=== PATIENT | female | born 1950 | race Caucasian/White ===

== ENCOUNTER → 2017-04-06 | Outpatient (CLI) | payer MEDICARE, OTHER ==
[~2017-04-06] MED LIST: /AMLO25TA PO; /FAMO2TA PO; /HCTZ25TA PO; /WARF25TA PO; CALC600T7 PO; FLEETS ENEMA PR; LEVO75TA PO; LIPI10TA PO; PERCOCET PO; TYLE325T5 PO; VITA400C2 PO; VITA500C24 PO
--- NOTE | 2017-04-06 12:38 | REP ---
REASON: Followup hepatic lesions. COMPARISON: 01/25/2015. Multiple sonographic images of the gallbladder show no abnormalities. Multiple sonographic images of the liver again show numerable complex hepatic lesions, three in the left lobe, two in the right, all unchanged from the prior exam. The common bile duct is upper limits of normal for the patient's age group measuring just under 7 mm. Multiple sonographic images of the pancreas show no abnormalities. The spleen has a maximal dimension of 8.1 cm and a volume metric index calculation which is within normal limits of 225. The kidneys are unchanged, the right kidney measures 9.9 x 4.7 x 4.1 cm and left 12.2 x 4.7 x 4.9 cm. There are bilateral renal cysts status quo. No free fluid is seen in the abdomen. IMPRESSION: No significant change from the prior exam with findings as described above. Signed by Denver Howell DO 04/06/2017 02:46 P
== END ==
LOC: M RAD 09:27
PROVIDERS: ATTEND Family Medicine
DX: D18.03 Hemangioma of intra-abdominal structures (principal); K76.89 Other specified diseases of liver; N28.1 Cyst of kidney, acquired

== ENCOUNTER → 2017-04-09 | Outpatient (CLI) | payer MEDICARE, OTHER ==
[2017-04-09 11:24] LABS: ALBUMIN 3.7 GM/DL (3.2-5.2); ALKALINE PHOSPHATASE 108 U/L (45-117); ALT/SGPT 19 U/L (12-78); ANION GAP 7 MEQ/L (8-16); AST/SGOT 18 U/L (15-37); BILIRUBIN,TOTAL 0.7 MG/DL (0.2-1.0); BLOOD UREA NITROGEN 17 MG/DL (7-18); CALCIUM LEVEL 9.9 MG/DL (8.8-10.2); CARBON DIOXIDE LEVEL 33 MEQ/L (21-32); CHLORIDE LEVEL 105 MEQ/L (98-107); CHOLESTEROL LEVEL 166 MG/DL (<200); CREATININE FOR GFR 0.75 MG/DL (0.55-1.02); FREE T4 1.53 NG/DL (0.76-1.46); GLOMERULAR FILTRATION RATE > 60.0 (>45); GLUCOSE, FASTING 85 MG/DL (80-110); POTASSIUM SERUM 3.8 MEQ/L (3.5-5.1); SODIUM LEVEL 145 MEQ/L (136-145); TOTAL PROTEIN 7.8 GM/DL (6.4-8.2); TRIGLYCERIDES LEVEL 121 MG/DL (<150)
== END ==
LOC: M LAB 10:18
PROVIDERS: ATTEND Family Medicine
DX: E03.9 Hypothyroidism, unspecified (principal); I10 Essential (primary) hypertension

== ENCOUNTER → 2017-04-13 | Outpatient (CLI) | payer MEDICARE, OTHER ==
--- NOTE | 2017-04-13 12:09 | REP ---
Clinical: Lung screening. Smoking history. Comparison: None Technique: Axial low-dose noncontrast images from the thoracic inlet to the upper abdomen using lung screening technique. Findings: The lung huffman are well-aerated. Mild scattered age-related chronic changes are appreciated including mild bronchiectasis and very subtle emphysematous changes. Ill-defined 3 mm non solid density inseparable from the right minor fissure (image 54) as well as 2 mm right lateral subpleural density likely represent chronic scarring. No consolidation, significant nodule or mass lesion is otherwise appreciated. No pleural effusion/reaction or pneumothorax. Mediastinum demonstrates mild atherosclerotic changes of the thoracic aorta. Heart and pericardium are grossly normal. Impression: Lung-RADS category I. Small above-mentioned findings likely represent a minuscule chronic changes as well as mild emphysematous change. No significant nodule or suspicious abnormality. Recommended management includes annual low-dose CT screening. Signed by Sorin Wilkins MD 04/13/2017 12:01 P
== END ==
LOC: M RAD 11:11
PROVIDERS: ATTEND Family Medicine
DX: F17.210 Nicotine dependence, cigarettes, uncomplicated (principal)

== ENCOUNTER → 2017-06-20 | Outpatient (CLI) | payer MEDICARE, OTHER ==
--- NOTE | 2017-06-20 12:24 | REPMRS ---
Patient History The patient states she had a clinical breast exam in 03/2017. Patient is postmenopausal. Family history of pancreatic cancer in maternal cousin. 3 benign localization of breast nodules of both breasts. Digital Woman Screen Mammo: June 20, 2017 - Exam #: [id number] Bilateral CC and MLO view(s) were taken. Technologist: Kia Howe, Technologist Prior study comparison: June 19, 2016, digital woman screen mammo performed at [facility]. June 29, 2015, right breast digital mammo diagnostic unilateral, performed at [facility]. FINDINGS: There are scattered fibroglandular densities. There has been no change in the appearance of the mammogram from the prior studies. There is a mild amount of residual fibroglandular tissue which is fairly symmetric. There is no interval development of dominant mass, architectural distortion, or clustered microcalcification suggestive of malignancy. ASSESSMENT: BI-RADS/ACR category 1 mammogram. Negative. Recommendation Routine screening mammogram in 1 year (for women over age 40). This mammogram was interpreted with the aid of an FDA-approved computer-aided dectection system. Electronically Signed By: Josef Hardin MD 06/20/17 [id number]
== END ==
LOC: M WHC 10:52
PROVIDERS: ATTEND Family Medicine
DX: Z12.31 Encounter for screening mammogram for malignant neoplasm of breast (principal)

== ENCOUNTER 2018-03-20 08:38 | Day surgery (SDC) | payer MEDICARE, OTHER ==
[~2018-03-20 08:38] MED LIST changes: -/AMLO25TA PO; -/FAMO2TA PO; -/HCTZ25TA PO; -/WARF25TA PO; -CALC600T7 PO; -FLEETS ENEMA PR; -LEVO75TA PO; -LIPI10TA PO; -PERCOCET PO; +PHENYLEPHRINE HCL 10 % OPHTH. SOL 5ML OS; -TYLE325T5 PO; -VITA400C2 PO; -VITA500C24 PO
[2018-03-20] MEDS ORDERED: MANNITOL 20% 100GM/500 ML BAG As Ordered ×2 (09:22)
[2018-03-20] MEDS: OFLOXACIN 0.3 % (OCUFLOX) OPTH SOL 5ML OS ×2 (09:34)
[2018-03-20] MEDS: PHENYLEPHRINE 2.5% OPHTH SOL 2ML OS ×2 (09:34)
[2018-03-20] MEDS: CYCLOPENTOLATE 2% OPHTH SOLN 2ML BTL OS ×2 (09:35)
[2018-03-20] MEDS: TROPICAMIDE 1% OPHTH SOLN 2ML OS ×2 (09:35)
[2018-03-20] MEDS: LIDOCAINE 3.5 % 1ML OPHTH TOPICAL GEL OU ×2 (09:35)
[2018-03-20] MEDS ORDERED: methylPREDNISolone INJ 125 MG/2 ML VIAL (J2930) As Ordered ×2 (09:37)
[2018-03-20] MEDS ORDERED: diphenhydrAMINE INJ 50MG/ML VIAL (J1200) As Ordered ×2 (09:38)
[2018-03-20] MEDS ORDERED: fentaNYL 100 MCG/2 ML INJECTION (J3010) As Ordered ×2 (09:47)
[2018-03-20] MEDS ORDERED: MIDAZOLAM INJ 2 MG/2 ML VIAL (J2250) As Ordered ×2 (09:47)
[2018-03-20] MEDS: diphenhydrAMINE INJ 50MG/ML VIAL (J1200) IV ×2 (10:00)
[2018-03-20] MEDS: methylPREDNISolone INJ 125 MG/2 ML VIAL (J2930) IV ×2 (10:05)
[2018-03-20] MEDS: MANNITOL 20% BAG 250 ML IV ×2 (10:08)
[2018-03-20] MEDS ORDERED: ACETYLCYSTEINE 20% 30 ML VIAL IV ×2 (10:15)
[2018-03-20] MEDS: AcetaZOLAMIDE 500MG INJECTION (J1120) IV ×2 (10:30)
[2018-03-20] MEDS: POVIDONE-IODINE 5% OPHTH PREP SOL 30ML As Ordered ×2 (11:23)
[2018-03-20] MEDS: CEFUROXIME 1MG/0.1ML INTRACAMERAL INJ As Ordered ×2 (11:23)
[2018-03-20] MEDS: HEALON DUET (HEALON 10MG/ML 0.55ML & HEALON ENDOCOAT 30MG/ML 0.85ML) As Ordered ×2 (11:23)
[2018-03-20] MEDS: ACETYLCHOLINE OPHTH SOLN 1% 2ML (MIOCHOL-E) As Ordered ×2 (11:23)
[2018-03-20] MEDS: BSS with VANC/TOB/EPI for EYE CASES IR ×2 (11:23)
[2018-03-20] MEDS: LIDOCAINE 1% SDV 5 ML VIAL As Ordered ×2 (11:23)
== END 2018-03-20 12:22 | disposition home or self-care (01) ==
LOC: M SDC 08:38
DX: H25.9 Unspecified age-related cataract (principal); H40.812 Glaucoma with increased episcleral venous pressure, left eye; I10 Essential (primary) hypertension; E78.00 Pure hypercholesterolemia, unspecified; E03.9 Hypothyroidism, unspecified; L40.8 Other psoriasis; Z79.899 Other long term (current) drug therapy; F17.210 Nicotine dependence, cigarettes, uncomplicated
CPT/HCPCS: 66984

== ENCOUNTER → 2018-07-12 | Outpatient (CLI) | payer MEDICARE, OTHER | LOC: M WHC 10:42 | DX: Z12.31 Encounter for screening mammogram for malignant neoplasm of breast (principal); M85.80 Other specified disorders of bone density and structure, unspecified site; Z78.0 Asymptomatic menopausal state; E03.9 Hypothyroidism, unspecified; E78.00 Pure hypercholesterolemia, unspecified; I10 Essential (primary) hypertension; Z92.89 Personal history of other medical treatment | CPT/HCPCS: 84443 ==

== ENCOUNTER → 2018-07-12 | Outpatient (CLI) | payer MEDICARE, OTHER ==
[2018-07-12 10:00] LABS: HEMATOCRIT 47.5 % (36.0-47.0); HEMOGLOBIN 15.3 g/dl (12.0-15.5); MEAN CORPUSCULAR HEMOGLOBIN 27.4 pg (27.0-33.0); MEAN CORPUSCULAR HGB CONC 32.2 g/dl (32.0-36.5); MEAN CORPUSCULAR VOLUME 85.1 fl (80.0-96.0); PLATELET COUNT, AUTOMATED 262 10^3/uL (150-450); RED BLOOD COUNT 5.58 10^6/uL (4.00-5.40); WHITE BLOOD COUNT 10.1 10^3/uL (4.0-10.0)
[2018-07-12 10:27] LABS: TOTAL 25(OH) VITAMIN D 20.7 NG/ML (30.0-100.0)
[2018-07-12 10:31] LABS: ALBUMIN 3.8 GM/DL (3.2-5.2); ALBUMIN/GLOBULIN RATIO 0.97 (1.00-1.93); ALKALINE PHOSPHATASE 97 U/L (45-117); ALT/SGPT 18 U/L (12-78); ANION GAP 6 MEQ/L (8-16); AST/SGOT 17 U/L (7-37); BILIRUBIN,TOTAL 0.8 MG/DL (0.2-1.0); BLOOD UREA NITROGEN 16 MG/DL (7-18); CALCIUM LEVEL 9.1 MG/DL (8.8-10.2); CARBON DIOXIDE LEVEL 31 MEQ/L (21-32); CHLORIDE LEVEL 108 MEQ/L (98-107); CREATININE FOR GFR 0.69 MG/DL (0.55-1.30); GLOMERULAR FILTRATION RATE > 60.0 (>39); GLUCOSE, FASTING 86 MG/DL (70-100); POTASSIUM SERUM 3.8 MEQ/L (3.5-5.1); SODIUM LEVEL 145 MEQ/L (136-145); TOTAL PROTEIN 7.7 GM/DL (6.4-8.2)
== END ==
LOC: M LAB 09:06
DX: M85.80 Other specified disorders of bone density and structure, unspecified site (principal); Z78.0 Asymptomatic menopausal state; E03.9 Hypothyroidism, unspecified; E78.00 Pure hypercholesterolemia, unspecified; I10 Essential (primary) hypertension

== ENCOUNTER → 2018-10-15 | Outpatient (CLI) | payer MEDICARE, OTHER | LOC: M RAD 09:36 | DX: Z12.2 Encounter for screening for malignant neoplasm of respiratory organs (principal); F17.210 Nicotine dependence, cigarettes, uncomplicated | CPT/HCPCS: G0297 ==

== ENCOUNTER 2018-11-06 09:53 | Day surgery (SDC) | payer MEDICARE, OTHER ==
[~2018-11-06] VITALS: Ht 162.6 cm; Wt 64.9 kg
[~2018-11-06 09:53] MED LIST changes: +/AMLO25TA PO; +/FAMO2TA PO; +/HCTZ25TA PO; +/WARF25TA PO; +ATOR1TAB19 PO; +BSS with VANC/TOB/EPI for EYE CASES IR ONE; +CALC600T60 PO; +CALC600T7 PO; +CEFUROXIME 1MG/0.1ML INTRACAMERAL INJ As Ordered ONE; +CYCLOPENTOLATE 2% OPHTH SOLN 2ML BTL OD ONE; +FLAX10002 PO; +FLEETS ENEMA PR; +HEALON DUET PRO(HEALON 10MG/ML 0.55ML & HEALON ENDOCOAT 30MG/ML 0.85ML) As Ordered ONE; +LEVO100T5 PO; +LEVO75TA PO; +LIDOCAINE 1% SDV 5 ML VIAL As Ordered ONE; +LIDOCAINE 3.5 % 1ML OPHTH TOPICAL GEL OU ONE; +LIPI10TA PO; +LOSA50TA88 PO; +MIDAZOLAM INJ 2 MG/2 ML VIAL (J2250) As Ordered ONE; +NATU400T PO; +OFLOXACIN 0.3 % (OCUFLOX) OPTH SOL 5ML OD ONE; +PERCOCET PO; +PHENYLEPHRINE 2.5% OPHTH SOL 2ML OD ONE; +PHENYLEPHRINE HCL 10 % OPHTH. SOL 5ML OD PRN; -PHENYLEPHRINE HCL 10 % OPHTH. SOL 5ML OS; +POVIDONE-IODINE 5% OPHTH PREP SOL 30ML As Ordered ONE; +RANI1SYP PO; +RANI1TAB6 PO; +REFR0.5D8 OU; +TRAV04OPD OU; +TRIA37.5 PO; +TROPICAMIDE 1% OPHTH SOLN 2ML OD ONE; +TYLE325T5 PO; +VITA-122 PO; +VITA400C2 PO; +VITA400C67 PO; +VITA500C24 PO; +fentaNYL 100 MCG/2 ML INJECTION (J3010) As Ordered ONE
[2018-11-06] MEDS ORDERED: ONDANSETRON 4MG/2ML VIAL (J2405) IV PRN (12:45)
[2018-11-06 12:55] VITALS: BP 133/60
--- NOTE | 2018-12-03 16:08 | RO ---
DATE OF PROCEDURE: 11/06/2018 PREOPERATIVE DIAGNOSIS: Cataract and glaucoma left eye. POSTOPERATIVE DIAGNOSIS: Cataract and glaucoma left eye. PROCEDURE: Phacoemulsification with intraocular lens implantation, along with ORA endocyclophotocoagulation and placement of Glaethel iStent, [id number]. SURGEON: Bailee Sultana MD STRATEGY ASSOCIATE: None. ANESTHESIA: PROCEDURE IN DETAIL: The patient was brought to the operating room, laid in supine position. The eye was prepped and draped in a sterile fashion for ophthalmic surgery and a lid speculum was placed. Sideport incision was made and EndoCoat was injected into the anterior chamber. A temporal clear corneal incision was made open with a 2.5 mm keratome, followed by capsulorrhexis and hydrodissection. Phacoemulsification was then done in a divide and conquer method within the capsular bag, followed by the aspiration of the cortical material with the help of irrigation and aspiration cannula. Healon was then placed in the capsular bag and the anterior chamber intraocular pressure was checked. It was note to be appropriate. Following which, ORA calculations were taken and intraocular lens power chosen. After insertion of intraocular lens, Healon was placed in the ciliary sulcus to visualize the ciliary processes with the help of the EndoProbe on the video screen. Endocyclophotocoagulation was done 280 degrees. Good results were noted as by shrinking of the ciliary processes. Following this, Healon was placed in the anterior chamber. The patient's head was turned away from the surgeon and a microscope towards the surgeon under high magnification with the help of the Gonio lens. The iStent was attempted and placed in the inferonasal quadrant. It was hard for patient the patient to hold still and there was some oozing of heme. So we were not sure of the final position but to the best of my knowledge it seemed to be okay. After which, excess viscoelastic was aspirated and because of patient's agitation further manipulation was not done. Wound was hydrated. No leaks were noted. Intracanal antibiotic was given, which was cefuroxime. The patient was returned to the recovery room. The case was discussed in detail in the recovery room with post-op instructions. ADDENDUM: 12/03/2018 04:22 PM Intraocular lens power used was [id number], power 24.0. Because of patient movement and some heme in the ciliary sulcus it was difficult to visualize the final placement of the iStent.
== END 2018-11-06 13:10 | disposition home or self-care (01) ==
LOC: M SDC 09:53
PROVIDERS: ATTEND Ophthalmology
DX: H25.091 Other age-related incipient cataract, right eye (principal); H40.9 Unspecified glaucoma; I10 Essential (primary) hypertension; E78.00 Pure hypercholesterolemia, unspecified; E03.9 Hypothyroidism, unspecified; K21.9 Gastro-esophageal reflux disease without esophagitis; M12.9 Arthropathy, unspecified; Z88.2 Allergy status to sulfonamides; Z88.6 Allergy status to analgesic agent; Z88.8 Allergy status to other drugs, medicaments and biological substances; Z79.899 Other long term (current) drug therapy; Z90.710 Acquired absence of both cervix and uterus; Z98.51 Tubal ligation status; Z72.0 Tobacco use
CPT/HCPCS: 66183; 66711; 66984; C1783; J2250; J3010; V2788

== ENCOUNTER → 2019-01-22 | Outpatient (CLI) | payer MEDICARE, OTHER ==
[~2019-01-22] MED LIST changes: -BSS with VANC/TOB/EPI for EYE CASES IR ONE; -CEFUROXIME 1MG/0.1ML INTRACAMERAL INJ As Ordered ONE; -CYCLOPENTOLATE 2% OPHTH SOLN 2ML BTL OD ONE; -HEALON DUET PRO(HEALON 10MG/ML 0.55ML & HEALON ENDOCOAT 30MG/ML 0.85ML) As Ordered ONE; -LIDOCAINE 1% SDV 5 ML VIAL As Ordered ONE; -LIDOCAINE 3.5 % 1ML OPHTH TOPICAL GEL OU ONE; -MIDAZOLAM INJ 2 MG/2 ML VIAL (J2250) As Ordered ONE; -OFLOXACIN 0.3 % (OCUFLOX) OPTH SOL 5ML OD ONE; -PHENYLEPHRINE 2.5% OPHTH SOL 2ML OD ONE; -PHENYLEPHRINE HCL 10 % OPHTH. SOL 5ML OD PRN; -POVIDONE-IODINE 5% OPHTH PREP SOL 30ML As Ordered ONE; -TROPICAMIDE 1% OPHTH SOLN 2ML OD ONE; -fentaNYL 100 MCG/2 ML INJECTION (J3010) As Ordered ONE
[2019-01-22 12:06] LABS: HEMATOCRIT 48.8 % (36.0-47.0); HEMOGLOBIN 15.5 g/dl (12.0-15.5); MEAN CORPUSCULAR HEMOGLOBIN 27.7 pg (27.0-33.0); MEAN CORPUSCULAR HGB CONC 31.8 g/dl (32.0-36.5); MEAN CORPUSCULAR VOLUME 87.3 fl (80.0-96.0); PLATELET COUNT, AUTOMATED 255 10^3/uL (150-450); RED BLOOD COUNT 5.59 10^6/uL (4.00-5.40); WHITE BLOOD COUNT 8.6 10^3/uL (4.0-10.0)
== END ==
LOC: M LAB 11:37
PROVIDERS: ATTEND Physician Assistant Medical
DX: R19.5 Other fecal abnormalities (principal)

== ENCOUNTER 2019-02-25 11:13 | Day surgery (SDC) | payer MEDICARE, OTHER ==
[~2019-02-25] VITALS: Ht 162.6 cm; Wt 64.8 kg
[~2019-02-25 11:13] MED LIST changes: -/AMLO25TA PO; -/FAMO2TA PO; -/HCTZ25TA PO; -/WARF25TA PO; +AMOX500T PO; +COUM1TAB18 PO; +FAMO1TAB11 PO; +HYDR-3644 PO; +NORV2TAB PO; +OXYC1TAB23 PO; -PERCOCET PO; +VITA500T PO
[2019-02-25] MEDS ORDERED: LIDOCAINE 2% INJ 100 MG/5 ML SDV (FOR ANES.) As Ordered ONE (12:51)
[2019-02-25] MEDS ORDERED: PROPOFOL 200 MG/20 ML VIAL As Ordered ONE ×3 (12:51→13:52)
[2019-02-25] MEDS ORDERED: PHENYLephrine HCL 500 MCG/5 ML (100MCG/ML) SYRINGE (J2370) As Ordered ONE (13:19)
--- NOTE | 2019-02-25 13:19 | ROOR ---
Patient Name: Saira Pollard Procedure Date: 02/25/2019 12:47 PM Date of : 1950 Age: 68 Room: [facility] Gender: Female Note Status: Finalized Procedure: Upper GI endoscopy Indications: Epigastric abdominal pain Providers: Ant BONNER MD Referring MD: Gaston Mendes MD Requesting Provider: Medicines: Monitored Anesthesia Care Complications: No immediate complications. Procedure: Pre-Anesthesia Assessment: - The heart rate, respiratory rate, oxygen saturations, blood pressure, adequacy of pulmonary ventilation, and response to care were monitored throughout the procedure. The Endoscope was introduced through the mouth, and advanced to the second part of duodenum. The upper GI endoscopy was accomplished without difficulty. The patient tolerated the procedure well. Findings: LA Grade A (one or more mucosal breaks less than 5 mm, not extending between tops of 2 mucosal folds) esophagitis was found at the gastroesophageal junction. The exam of the esophagus was otherwise normal. The entire examined stomach was normal. There was a small polypoid lipoma (probable), 10 mm in diameter, between the first and second portion of the duodenum. Biopsies were taken with a cold forceps for histology. Impression: - Mild reflux esophagitis. - The esophagus is otherwise normal. - Normal stomach. - Small duodenal lipoma (probable). Biopsied. - The duodenum is otherwise normal. Recommendation: - Continue present medications. - Follow an antireflux regimen. - Telephone endoscopist for pathology results in 2 weeks. Ant Bonner MD Ant BONNER MD 02/25/2019 1:19:32 PM Electronically signed by Ant BONNER MD Number of Addenda: 0 Note Initiated On: 02/25/2019 12:47 PM Estimated Blood Loss: Estimated blood loss: none.
--- NOTE | 2019-02-25 14:00 | ROOR ---
Patient Name: Saira Pollard Procedure Date: 02/25/2019 12:48 PM Date of : 1950 Age: 68 Room: [facility] Gender: Female Note Status: Finalized Procedure: Colonoscopy Indications: Positive fecal immunochemical test Providers: Ant BONNER MD Referring MD: Gaston Mendes MD Requesting Provider: Medicines: Monitored Anesthesia Care Complications: No immediate complications. Procedure: Pre-Anesthesia Assessment: - The heart rate, respiratory rate, oxygen saturations, blood pressure, adequacy of pulmonary ventilation, and response to care were monitored throughout the procedure. The Colonoscope was introduced through the anus and advanced to the cecum, identified by appendiceal orifice and ileocecal valve. The colonoscopy was performed without difficulty. The patient tolerated the procedure well. The quality of the bowel preparation was good. Findings: The perianal and digital rectal examinations were normal. Six sessile polyps were found in the descending colon, hepatic flexure and ascending colon. The polyps were 4 to 6 mm in size. These polyps were removed with a cold snare. Resection and retrieval were complete. A 20 mm polyp was found in the proximal sigmoid colon. The polyp was flat. The polyp was removed with a piecemeal technique using a hot snare. Resection was complete, but the polyp tissue was only partially retrieved. To prevent bleeding after the polypectomy, three hemostatic clips were successfully placed. Area was successfully injected with 3 mL Sangeeta ink for tattooing. Multiple small and large-mouthed diverticula were found in the sigmoid colon. There was evidence of diverticular spasm. The exam was otherwise without abnormality. Impression: - Six 4 to 6 mm polyps in the descending colon, at the hepatic flexure and in the ascending colon, removed with a cold snare. Resected and retrieved. - One 20 mm polyp in the proximal sigmoid colon, removed piecemeal using a hot snare. Complete resection. Partial retrieval. Clips were placed. Injected. - Moderate diverticulosis in the sigmoid colon. There was evidence of tortuousity and diverticular spasm. - The examination was otherwise normal. Recommendation: - Telephone endoscopist for pathology results in 2 weeks. - If the pathology report reveals adenomatous tissue, then repeat the colonoscopy for surveillance after piecemeal polypectomy in 1 year. Ant Bonner MD Ant BONNER MD 02/25/2019 2:00:33 PM Electronically signed by Ant BONNER MD Number of Addenda: 0 Note Initiated On: 02/25/2019 12:48 PM Estimated Blood Loss: Estimated blood loss: none.
[2019-02-25 14:30] VITALS: BP 124/75
== END 2019-02-25 14:40 | disposition home or self-care (01) ==
LOC: M OPP 11:13
PROVIDERS: ATTEND Internal Medicine Gastroenterology
DX: D12.4 Benign neoplasm of descending colon (principal); D12.5 Benign neoplasm of sigmoid colon; D12.3 Benign neoplasm of transverse colon; D12.2 Benign neoplasm of ascending colon; K57.30 Diverticulosis of large intestine without perforation or abscess without bleeding; R19.5 Other fecal abnormalities; R10.13 Epigastric pain; K21.0 Gastro-esophageal reflux disease with esophagitis; K31.89 Other diseases of stomach and duodenum
CPT/HCPCS: 45385; 88305; J2370

== ENCOUNTER → 2019-07-23 | Outpatient (CLI) | payer MEDICARE, OTHER ==
[~2019-07-23] MED LIST changes: +RANI-356 PO; -RANI1TAB6 PO
--- NOTE | 2019-07-23 11:00 | REPMRS ---
Patient History The patient states she had a clinical breast exam in 06/2019. Patient is postmenopausal. No known family history of cancer. 3 benign localization of breast nodules of both breasts. No Hormone Replacement Therapy Digital Woman Screen Mammo: July 23, 2019 - Exam #: [id number] Bilateral CC and MLO view(s) were taken. Technologist: Kia Howe, Technologist Prior study comparison: July 12, 2018, bilateral digital woman screen mammo performed at [facility]. June 20, 2017, digital woman screen mammo performed at [facility]. June 19, 2016, digital woman screen mammo performed at [facility]. FINDINGS: There are scattered fibroglandular densities. There has been no change in the appearance of the mammogram from the prior studies. There is a mild amount of scattered fibroglandular density which is fairly symmetric. There is no interval development of dominant mass, architectural distortion, or grouped microcalcification suggestive of malignancy. 3-D tomosynthesis shows no additional findings. Assessment: BI-RADS/ACR category 1 mammogram. Negative Mammogram. Recommendation Routine screening mammogram of both breasts in 1 year (for women over age 40). This patient's Lifetime Breast Cancer Risk is estimated at 4.0 %. This mammogram was interpreted with the aid of an FDA-approved computer-aided dectection system. Electronically Signed By: Osbaldo Juan MD 07/23/19 [id number]
== END ==
LOC: M WHC 09:51
PROVIDERS: ATTEND Family Medicine
DX: Z12.31 Encounter for screening mammogram for malignant neoplasm of breast (principal); Z78.0 Asymptomatic menopausal state

== ENCOUNTER → 2019-07-24 | Outpatient (CLI) | payer MEDICARE, OTHER ==
[~2019-07-24] MED LIST changes: -RANI-356 PO; +RANI1TAB6 PO
[2019-07-24 09:47] LABS: HEMATOCRIT 49.7 % (36.0-47.0); MEAN CORPUSCULAR HEMOGLOBIN 28.9 pg (27.0-33.0); MEAN CORPUSCULAR HGB CONC 32.2 g/dl (32.0-36.5); MEAN CORPUSCULAR VOLUME 89.7 fl (80.0-96.0); PLATELET COUNT, AUTOMATED 192 10^3/uL (150-450); RED BLOOD COUNT 5.54 10^6/uL (4.00-5.40); WHITE BLOOD COUNT 7.1 10^3/uL (4.0-10.0)
[2019-07-24 10:17] LABS: ALT/SGPT 23 U/L (12-78); BILIRUBIN,TOTAL 0.7 MG/DL (0.2-1.0); BLOOD UREA NITROGEN 25 MG/DL (7-18); CALCIUM LEVEL 9.3 MG/DL (8.8-10.2); CARBON DIOXIDE LEVEL 34 MEQ/L (21-32); CHLORIDE LEVEL 103 MEQ/L (98-107); CREATININE FOR GFR 0.75 MG/DL (0.55-1.30); FREE T4 1.23 NG/DL (0.76-1.46); GLOMERULAR FILTRATION RATE > 60.0 (>39); GLUCOSE, FASTING 91 MG/DL (70-100); POTASSIUM SERUM 3.7 MEQ/L (3.5-5.1); SODIUM LEVEL 142 MEQ/L (136-145); TOTAL PROTEIN 7.6 GM/DL (6.4-8.2)
[2019-07-24 10:58] LABS: TOTAL 25(OH) VITAMIN D 38.5 NG/ML (30.0-100.0)
== END ==
LOC: M LAB 08:31
PROVIDERS: ATTEND Family Medicine
DX: E03.9 Hypothyroidism, unspecified (principal); I10 Essential (primary) hypertension; E78.00 Pure hypercholesterolemia, unspecified; M85.80 Other specified disorders of bone density and structure, unspecified site; N28.1 Cyst of kidney, acquired; D18.03 Hemangioma of intra-abdominal structures; Z78.0 Asymptomatic menopausal state

== ENCOUNTER → 2019-07-24 | Outpatient (CLI) | payer MEDICARE, OTHER ==
--- NOTE | 2019-07-24 11:12 | REP ---
COMPLETE ABDOMINAL SONOGRAPHY: HISTORY: Renal cyst. Liver hemangioma. Comparison is made with prior sonography April 06, [address] study from August 12, 2014 as well as a prior MRI of the abdomen from August 29, 2014. SONOGRAPHIC FINDINGS: Scanning through the right upper quadrant of the abdomen demonstrates normal sized thin-walled gallbladder without evidence of stone or polyp. Common bile duct is normal measuring 0.5 cm in greatest diameter. There are multiple anechoic cysts in the liver measuring 1.1, 1.3, and 1.9 cm in greatest diameter. In addition there is a solid lesion in the left lobe of the liver inferiorly measuring 1.7 x 1.6 x 1.5 cm. This produces a contour bulge in the anterior capsule of the liver and is felt to be unchanged from the comparison CT and MRI studies from 2013. This is felt to be consistent with a benign stable hemangioma. The cysts are stable as well. No other focal liver lesion is seen. Limited views of the pancreas show no abnormality. A normal caliber aorta is seen. Renal cortical echogenicity pattern is normal and contours are smooth. There is a cyst in the upper pole on the left kidney 3.0 x 2.8 x 2.7 cm in diameter, also unchanged. Left renal dimensions are 11.0 x 4.5 x 4.6 cm. Right kidney measures 10.0 x 4.3 x 4.2 cm. A homogeneous normal size spleen is seen measuring 9.8 cm in greatest diameter. No ascites is seen. IMPRESSION: Multiple stable hepatic and left renal cyst. There is a stable left lobe hemangioma in the liver unchanged since 2014 in size. Electronically Signed by Jhonatan Juan MD 07/24/2019 04:44 P
== END ==
LOC: M RAD 07:28
PROVIDERS: ATTEND Family Medicine
DX: E03.9 Hypothyroidism, unspecified (principal); N28.1 Cyst of kidney, acquired; D18.03 Hemangioma of intra-abdominal structures; I10 Essential (primary) hypertension; E78.00 Pure hypercholesterolemia, unspecified; M85.80 Other specified disorders of bone density and structure, unspecified site; Z78.0 Asymptomatic menopausal state

== ENCOUNTER → 2019-12-02 | Outpatient (CLI) | payer MEDICARE, OTHER ==
[~2019-12-02] MED LIST changes: +RANI-397 PO; -RANI1TAB6 PO
--- NOTE | 2019-12-02 12:25 | REP ---
CT chest without contrast: Low-dose screening exam. History: Tobacco use. Comparison prior screening chest CT studies are from October 15, 2018 and April 13, 2017. Findings: There is a calcified granulomatous nodule 2-3 mm in diameter in the right lower lobe unchanged from prior studies. This is seen on page 68 of 108 in series 201 of today's study. There is a stable 5 mm otilia-fissural nodule on the right adjacent to the minor fissure on page 44 unchanged from prior studies. There is a tiny area of subpleural fibrosis in the right upper lobe on page 32 unchanged from the prior exam. There is a new nodular opacity with some adjacent tree in bud change in the distribution of the right middle lobe on page 58 of today's study which is not apparent previously. This may be inflammatory. There is a 4 mm nodule here. There is a similar non-solid nodule in the left lower lobe on page 58 which is also new when compared with the prior exam. This also measures 4 mm in greatest diameter. Study is otherwise unremarkable. Impression: There are two new 4 mm nodules which may represent inflammatory changes. Otherwise stable findings. Lung-RADS category 2 exam. Repeat screening exam recommended 1 year. Electronically Signed by Jhonatan Juan MD 12/02/2019 01:10 P
== END ==
LOC: M RAD 10:38
PROVIDERS: ATTEND Family Medicine
DX: F17.210 Nicotine dependence, cigarettes, uncomplicated (principal)

== ENCOUNTER → 2020-05-26 | Outpatient (REF) | payer MEDICARE, OTHER ==
[~2020-05-26] MED LIST changes: +VITA-243 PO; -VITA500T PO
[2020-05-26 13:03] LABS: HEMATOCRIT 45.9 % (36.0-47.0); HEMOGLOBIN 14.2 g/dl (12.0-15.5); MEAN CORPUSCULAR HEMOGLOBIN 26.6 pg (27.0-33.0); MEAN CORPUSCULAR HGB CONC 30.9 g/dl (32.0-36.5); PLATELET COUNT, AUTOMATED 300 10^3/uL (150-450); RED BLOOD COUNT 5.34 10^6/uL (4.00-5.40); WHITE BLOOD COUNT 10.7 10^3/uL (4.0-10.0)
[2020-05-26 13:04] LABS: APPEARANCE, URINE CLEAR (CLEAR); BACTERIA, URINE AUTO NEGATIVE (NEGATIVE); BILIRUBIN, URINE AUTO NEGATIVE (NEGATIVE); BLOOD, URINE BLOOD NEGATIVE (NEGATIVE); COLOR, URINE YELLOW (YELLOW); GLUCOSE, URINE (UA) AUTO NEGATIVE (NEGATIVE); KETONE, URINE AUTO NEGATIVE (NEGATIVE); LEUKOCYTE ESTERASE, URINE AUTO NEGATIVE (NEGATIVE); NITRITE, URINE AUTO NEGATIVE (NEGATIVE); PROTEIN, URINE AUTO NEGATIVE (NEGATIVE); RBC, URINE AUTO 1 /HPF (0-3); SPECIFIC GRAVITY URINE AUTO 1.011 (1.002-1.035); SQUAMOUS EPITHELIAL CELL UR AU 0 /HPF (0-6); UROBILINOGEN, URINE AUTO 0.2 mg/dL (0.0-2.0); WBC, URINE AUTO 0 /HPF (0-3)
[2020-05-26 13:17] LABS: ALBUMIN 3.9 GM/DL (3.2-5.2); ALT/SGPT 30 U/L (12-78); BILIRUBIN,TOTAL 0.7 MG/DL (0.2-1.0); BLOOD UREA NITROGEN 19 MG/DL (7-18); CALCIUM LEVEL 9.5 MG/DL (8.8-10.2); CARBON DIOXIDE LEVEL 32 MEQ/L (21-32); CHLORIDE LEVEL 106 MEQ/L (98-107); CHOLESTEROL LEVEL 158 MG/DL (<200); CHOLESTEROL RISK RATIO 3.098 (<5); CREATININE FOR GFR 0.71 MG/DL (0.55-1.30); FREE T4 1.56 NG/DL (0.76-1.46); GLOMERULAR FILTRATION RATE > 60.0 (>39); GLUCOSE, FASTING 95 MG/DL (70-100); HDL CHOLESTEROL 51 MG/DL (>40); LDL CHOLESTEROL 82 MG/DL (<100); NON-HDL-C 107 MG/DL; SODIUM LEVEL 141 MEQ/L (136-145); THYROID STIMULATING HORMONE 0.215 uIU/ML (0.358-3.740); TOTAL PROTEIN 7.8 GM/DL (6.4-8.2); TRIGLYCERIDES LEVEL 124 MG/DL (<150)
== END ==
LOC: M SFHCCLAY 08:19
PROVIDERS: ATTEND Family Medicine
DX: E03.9 Hypothyroidism, unspecified (principal); I10 Essential (primary) hypertension; J44.9 Chronic obstructive pulmonary disease, unspecified; R31.29 Other microscopic hematuria

== ENCOUNTER → 2020-05-26 | Outpatient (CLI) | payer MEDICARE, OTHER ==
[~2020-05-26] MED LIST changes: +ANOR1AER; +D31000TA2 PO; +FAMO1TAB11
--- NOTE | 2020-05-26 10:08 | REP ---
Clinical: Acute midline back pain. Technique: AP, lateral, bilateral oblique and coned-down views of the lumbosacral spine. Findings: Age-related osteopenia is appreciated. There is no evidence for acute fracture / compression injury. Lateral views demonstrate grade 1 anterolisthesis at the L4-5 level of approximately 5 mm. Multilevel endplate sclerosis with hypertrophic facet changes and minimal disc space narrowing also noted and most notable at L5-S1. Impression: Osteopenia and multilevel degenerative changes including anterolisthesis at L4-5. Electronically Signed by Sorin Wilkins MD 05/26/2020 09:58 A
== END ==
LOC: M CLY 09:26
PROVIDERS: ATTEND Family Medicine
DX: M85.88 Other specified disorders of bone density and structure, other site (principal); M51.37 Other intervertebral disc degeneration, lumbosacral region; M54.5 Low back pain
CPT/HCPCS: 72110; G0463

== ENCOUNTER → 2020-07-07 | Outpatient (CLI) | payer MEDICARE, OTHER ==
[2020-08-22 08:26] LABS: FREE T4 1.86 NG/DL (0.76-1.46); THYROID STIMULATING HORMONE 0.124 uIU/ML (0.358-3.740)
== END ==
LOC: M LAB 12:34
PROVIDERS: ATTEND Family Medicine
DX: E03.9 Hypothyroidism, unspecified (principal); I10 Essential (primary) hypertension

== ENCOUNTER → 2020-08-05 | Outpatient (CLI) | payer MEDICARE, OTHER | LOC: M WHC 09:42 | PROVIDERS: ATTEND Family Medicine | DX: Z53.9 Procedure and treatment not carried out, unspecified reason (principal); Z12.31 Encounter for screening mammogram for malignant neoplasm of breast; M81.0 Age-related osteoporosis without current pathological fracture ==

== ENCOUNTER → 2020-08-09 | Outpatient (CLI) | payer MEDICARE, OTHER ==
--- NOTE | 2020-08-09 17:48 | REPMRS ---
Patient History The patient states she has not had a clinical breast exam in over a year. No known family history of cancer. 3 benign localization of breast nodules of both breasts. No Hormone Replacement Therapy Digital Woman Screen Mammo: August 09, 2020 - Exam #: [id number] Bilateral CC and MLO view(s) were taken. Technologist: Agueda Jones, Technologist Prior study comparison: July 23, 2019, bilateral digital woman screen mammo performed at [facility]. July 12, 2018, bilateral digital woman screen mammo performed at [facility]. June 20, 2017, digital woman screen mammo performed at [facility]. FINDINGS: There are scattered fibroglandular densities. The Volpara volumetric breast density category is:B. There has been no change in the appearance of the mammogram from the prior studies. There is a mild amount of scattered fibroglandular density which is fairly symmetric. There is no interval development of dominant mass, architectural distortion, or grouped microcalcification suggestive of malignancy. 3-D tomosynthesis shows no additional findings. Assessment: BI-RADS/ACR category 1 mammogram. Negative Mammogram. Recommendation Routine screening mammogram of both breasts in 1 year (for women over age 40). This patient's Lifetime Breast Cancer Risk is estimated at 3.8 %. This mammogram was interpreted with the aid of an FDA-approved computer-aided dectection system. Electronically Signed By: Osbaldo Juan MD 08/09/20 [id number]
--- NOTE | 2020-08-20 14:43 | DEXA ---
AP SPINE L1 - L4 0.958 -1.9 -0.2 LT FEMUR TOTAL 0.712 -2.3 -0.8 LT NECK 0.718 -2.3 -0.5 RT FEMUR TOTAL RT NECK TOTAL BODY TOTAL OTHER COMMENTS: There is low bone density of the spine. There is low bone density of the left hip. The density of the spine has decreased 2.3% since the initial exam on 02/20/2007. The increased 2.6% since the most recent exam on 07/12/2018. The density of the left hip has decreased 14.7% since the initial exam on 02/20/2007. The density of the left hip has increased 0.8% since the most recent exam on 07/12/2018. FOLLOW-UP: Recommendation for the next bone density exam: 2 years. YUDI
== END ==
LOC: M WHC 13:05
PROVIDERS: ATTEND Family Medicine
DX: Z12.31 Encounter for screening mammogram for malignant neoplasm of breast (principal); M81.0 Age-related osteoporosis without current pathological fracture; Z86.018 Personal history of other benign neoplasm

== ENCOUNTER → 2020-08-25 | Outpatient (REF) | payer MEDICARE, OTHER ==
[2020-08-25 12:52] LABS: FREE T4 1.19 NG/DL (0.76-1.46); THYROID STIMULATING HORMONE 5.16 uIU/ML (0.358-3.740)
== END ==
LOC: M SFHCCLAY 11:01
PROVIDERS: ATTEND Family Medicine
DX: E03.9 Hypothyroidism, unspecified (principal)

== ENCOUNTER → 2020-09-26 | Outpatient (CLI) | payer MEDICARE, OTHER | LOC: M LABSMTC 08:11 | PROVIDERS: ATTEND Anesthesiology | DX: Z01.812 Encounter for preprocedural laboratory examination (principal); Z20.828 Contact with and (suspected) exposure to other viral communicable diseases | CPT/HCPCS: C9803; U0003 ==

== ENCOUNTER 2020-10-01 07:52 | Day surgery (SDC) | payer MEDICARE, OTHER ==
[~2020-10-01] VITALS: Ht 162.6 cm; Wt 68.5 kg
[~2020-10-01 07:52] MED LIST changes: +NS 1,000 ML IV ONE
[2020-10-01] MEDS ORDERED: propofoL 200 MG/20 ML VIAL As Ordered ONE ×2 (09:06→09:29)
[2020-10-01] MEDS ORDERED: LIDOCAINE 2% 100MG/5ML SDV (FOR ANES.) As Ordered ONE (09:06)
--- NOTE | 2020-10-01 09:36 | ROOR ---
Patient Name: Saira Pollard Procedure Date: 10/01/2020 9:03 AM Date of : 1950 Age: 70 Room: [facility] Gender: Female Note Status: Finalized Procedure: Colonoscopy Indications: High risk colon cancer surveillance: Personal history of colonic polyps, Surveillance: Personal history of piecemeal removal of large sessile adenoma on last colonoscopy (less than 1 year ago) Providers: Ant BONNER MD Referring MD: Gaston Mendes MD Requesting Provider: Medicines: Monitored Anesthesia Care Complications: No immediate complications. Procedure: Pre-Anesthesia Assessment: - The heart rate, respiratory rate, oxygen saturations, blood pressure, adequacy of pulmonary ventilation, and response to care were monitored throughout the procedure. The Colonoscope was introduced through the anus and advanced to the terminal ileum, with identification of the appendiceal orifice and IC valve. The colonoscopy was performed without difficulty. The patient tolerated the procedure well. The quality of the bowel preparation was good. Findings: The perianal and digital rectal examinations were normal. A diminutive polypoid tissue was found in the proximal sigmoid colon at a site of previous tattooing. The lesion was sessile. The polyp was removed with a cold snare. Resection and retrieval were complete. Multiple small and large-mouthed diverticula were found in the sigmoid colon. There was evidence of diverticular spasm. Small Internal Hemorrhoids. The exam was otherwise without abnormality on direct and retroflexion views. Impression: - Small residual polypoid tissue in the proximal sigmoid colon (at tattoo site). Complete removal was accomplished. - Moderate diverticulosis in the sigmoid colon. There was evidence of diverticular spasm. - Small Internal Hemorrhoids. - The examination was otherwise normal on direct and retroflexion views. Recommendation: - Repeat colonoscopy in 3 years for surveillance. Ant Bonner MD Ant BONNER MD 10/01/2020 9:36:01 AM Electronically signed by Ant BONNER MD Number of Addenda: 0 Note Initiated On: 10/01/2020 9:03 AM Estimated Blood Loss: Estimated blood loss: none.
[2020-10-01 09:50] VITALS: BP 115/59
== END 2020-10-01 10:02 | disposition home or self-care (01) ==
LOC: M OPP 07:52
PROVIDERS: ATTEND Internal Medicine Gastroenterology
DX: Z86.010 Personal history of colon polyps (principal); Z09 Encounter for follow-up examination after completed treatment for conditions other than malignant neoplasm; D49.0 Neoplasm of unspecified behavior of digestive system; K57.30 Diverticulosis of large intestine without perforation or abscess without bleeding; K63.5 Polyp of colon; I10 Essential (primary) hypertension; K21.9 Gastro-esophageal reflux disease without esophagitis; Z79.2 Long term (current) use of antibiotics; Z79.899 Other long term (current) drug therapy; Z88.2 Allergy status to sulfonamides; Z88.6 Allergy status to analgesic agent; Z91.048 Other nonmedicinal substance allergy status

== ENCOUNTER → 2020-10-07 | Outpatient (REF) | payer MEDICARE, OTHER ==
[~2020-10-07] MED LIST changes: -NS 1,000 ML IV ONE
[2020-10-07 11:55] LABS: FREE T4 1.18 NG/DL (0.76-1.46); THYROID STIMULATING HORMONE 13.4 uIU/ML (0.358-3.740)
== END ==
LOC: M SFHCCLAY 08:48
PROVIDERS: ATTEND Family Medicine
DX: E03.9 Hypothyroidism, unspecified (principal)

== ENCOUNTER → 2020-11-16 | Outpatient (REF) | payer MEDICARE, OTHER ==
[2020-11-16 12:50] LABS: FREE T4 1.26 NG/DL (0.76-1.46); THYROID STIMULATING HORMONE 2.98 uIU/ML (0.358-3.740)
== END ==
LOC: M SFHCCLAY 08:29
PROVIDERS: ATTEND Family Medicine
DX: E03.9 Hypothyroidism, unspecified (principal)

== ENCOUNTER → 2021-02-02 | Outpatient (CLI) | payer MEDICARE, OTHER ==
--- NOTE | 2021-02-02 11:07 | REP ---
INDICATION: SMOKER COMPARISON: 12/02/2019, 04/13/2017, 10/15/2018 TECHNIQUE: Axial noncontrast images from the thoracic inlet to the upper abdomen using low-dose lung screening technique (LDCT). FINDINGS: Lung huffman demonstrate stable chronic changes including early moderate emphysematous disease. Previously identified chronic stable findings including small perifissural nodule adjacent to the right minor fissure, tiny calcified granuloma in the right lower lobe and minimal subpleural fibrosis are unchanged. The small 4 mm non solid densities on most recent prior examination have resolved. No new consolidation, suspicious nodule or mass lesion. Tracheobronchial tree is patent. No effusion. No pneumothorax. IMPRESSION: Lung-RADS category 2. Stable changes. Most previously identified non solid 4 mm opacities have resolved. Management recommendations include annual low-dose CT surveillance. <Electronically signed by Sorin Wilkins > 02/02/21 1103
== END ==
LOC: M RAD 10:14
PROVIDERS: ATTEND Family Medicine
DX: F17.210 Nicotine dependence, cigarettes, uncomplicated (principal); Z12.2 Encounter for screening for malignant neoplasm of respiratory organs

== ENCOUNTER → 2021-02-08 | Outpatient (REF) | payer MEDICARE, OTHER ==
[2021-02-08 16:26] LABS: BASO # 0.1 10^3/uL (0.0-0.2); BASO % 0.8 % (0.0-1.0); EOS # 0.1 10^3/uL (0.0-0.5); EOS % 0.9 % (0.0-3.0); HEMOGLOBIN 14.4 g/dl (12.0-15.5); LYMPH # 1.6 10^3/uL (1.5-5.0); LYMPH % 20.2 % (24.0-44.0); MEAN CORPUSCULAR HEMOGLOBIN 27.7 pg (27.0-33.0); MEAN CORPUSCULAR HGB CONC 31.3 g/dl (32.0-36.5); MEAN CORPUSCULAR VOLUME 88.5 fl (80.0-96.0); MONO # 0.9 10^3/uL (0.0-0.8); MONO % 10.9 % (2.0-8.0); NEUTROPHILS # 5.2 10^3/uL (1.5-8.5); NEUTROPHILS % 66.8 % (36.0-66.0); PLATELET COUNT, AUTOMATED 248 10^3/uL (150-450); WHITE BLOOD COUNT 7.8 10^3/uL (4.0-10.0)
[2021-02-08 17:01] LABS: ALBUMIN 4.1 GM/DL (3.2-5.2); ALT/SGPT 19 U/L (12-78); BILIRUBIN,TOTAL 0.5 MG/DL (0.2-1.0); BLOOD UREA NITROGEN 22 MG/DL (7-18); CALCIUM LEVEL 9.8 MG/DL (8.8-10.2); CARBON DIOXIDE LEVEL 33 MEQ/L (21-32); CHLORIDE LEVEL 105 MEQ/L (98-107); CHOLESTEROL LEVEL 172 MG/DL (<200); CHOLESTEROL RISK RATIO 2.915 (<5); CREATININE FOR GFR 0.75 MG/DL (0.55-1.30); FREE T4 1.44 NG/DL (0.76-1.46); GLOMERULAR FILTRATION RATE > 60.0 (>39); GLUCOSE, FASTING 97 MG/DL (70-100); HDL CHOLESTEROL 59 MG/DL (>40); LDL CHOLESTEROL 87 MG/DL (<100); NON-HDL-C 113 MG/DL; POTASSIUM SERUM 4.1 MEQ/L (3.5-5.1); SODIUM LEVEL 142 MEQ/L (136-145); TOTAL PROTEIN 7.5 GM/DL (6.4-8.2); TRIGLYCERIDES LEVEL 128 MG/DL (<150)
== END ==
LOC: M SFHCCLAY 12:10
PROVIDERS: ATTEND Family Medicine
DX: L98.491 Non-pressure chronic ulcer of skin of other sites limited to breakdown of skin (principal); I10 Essential (primary) hypertension; J44.9 Chronic obstructive pulmonary disease, unspecified; E03.9 Hypothyroidism, unspecified
CPT/HCPCS: 80053; 80061; 84439; 84443; 85025; 87252; G0463

== ENCOUNTER → 2021-08-19 | Outpatient (CLI) | payer MEDICARE, OTHER ==
--- NOTE | 2021-08-19 12:18 | REPMRS ---
Patient History The patient states she had a clinical breast exam 08/11/2021. No known family history of cancer. 3 benign localization of breast nodules of both breasts. No Hormone Replacement Therapy Patient states no breast complaints today. Patient has signed MRS History Sheet. Digital Woman Screen Mammo: August 19, 2021 - Exam #: [id number] Bilateral CC and MLO view(s) were taken. Technologist: Monica Hahn, Gel Coater Prior study comparison: August 09, 2020, bilateral digital woman screen mammo performed at [facility]. July 23, 2019, bilateral digital woman screen mammo performed at [facility]. FINDINGS: There are scattered fibroglandular densities. Screening. Digital screening (2D) mammography was performed bilaterally in the CC and MLO projections. Additionally, breast tomosynthesis (3D mammography) was performed bilaterally in the CC and MLO projections. Todays exam was compared to the prior exam/exams. By history, the patient has no complaints of a palpable breast abnormality or other significant breast complaints. The Volpara volumetric breast density category is B, there are scattered areas of fibroglandular densities. The breasts are unchanged in size and shape. There is a biopsy clip again noted in the right breast. There are no belkis-soft tissue densities or spiculated masses. There is no internal architectural distortion. Scattered, benign calcifications are again seen in both breasts. There are no suspicious belkis-calcific clusters. Skin thickening or nipple retraction is not present. IMPRESSION: BI-RADS Category 2- Benign Findings. There is no evidence of malignant alteration of the breasts. Followup examination recommended in one year. This mammogram was [facility] FDA approved computer aided detection system for mammography. The lifetime Tyrer-Cuzick score is 3.5% Negative x-ray reports should not delay surgical consultation if a dominant or clinically suspicious mass is present. Not all breast cancers can be identified by mammography. Therefore, we recommend that you continue to perform regular breast self-examination and physical examination and then promptly contact your physician of any concerns or changes. Adenosis and dense breasts may obscure an underlying neoplasm. No significant changes when compared with prior studies. Assessment: BI-RADS/ACR category 2 mammogram. Benign Findings. Recommendation Routine screening mammogram of both breasts in 1 year. Electronically Signed By: Lenny Bello MD 08/19/21 9710
== END ==
LOC: M WHC 10:39
PROVIDERS: ATTEND Family Medicine
DX: Z12.31 Encounter for screening mammogram for malignant neoplasm of breast (principal)

== ENCOUNTER → 2022-02-07 | Outpatient (CLI) | payer MEDICARE, OTHER ==
[~2022-02-07] MED LIST changes: -D31000TA2 PO; +LOSA50TA28 PO; -LOSA50TA88 PO; +VITA100093 PO
== END ==
LOC: M RAD 10:20
PROVIDERS: ATTEND Family Medicine
DX: R91.8 Other nonspecific abnormal finding of lung field (principal); Z12.2 Encounter for screening for malignant neoplasm of respiratory organs; J47.9 Bronchiectasis, uncomplicated; F17.210 Nicotine dependence, cigarettes, uncomplicated

== ENCOUNTER → 2022-02-09 | Outpatient (REF) | payer MEDICARE, OTHER ==
[2022-02-09 16:55] LABS: HEMATOCRIT 46.7 % (36.0-47.0); HEMOGLOBIN 14.8 g/dl (12.0-15.5); MEAN CORPUSCULAR HGB CONC 31.7 g/dl (32.0-36.5); MEAN CORPUSCULAR VOLUME 88.4 fl (80.0-96.0); PLATELET COUNT, AUTOMATED 227 10^3/uL (150-450); RED BLOOD COUNT 5.28 10^6/uL (4.00-5.40); WHITE BLOOD COUNT 9.5 10^3/uL (4.0-10.0)
[2022-02-09 17:30] LABS: ALT/SGPT 24 U/L (12-78); BILIRUBIN,TOTAL 0.8 MG/DL (0.2-1.0); BLOOD UREA NITROGEN 25 MG/DL (7-18); CALCIUM LEVEL 9.7 MG/DL (8.8-10.2); CARBON DIOXIDE LEVEL 32 MEQ/L (21-32); CHLORIDE LEVEL 107 MEQ/L (98-107); CHOLESTEROL LEVEL 164 MG/DL (<200); CHOLESTEROL RISK RATIO 2.877 (<5); FREE T4 1.57 NG/DL (0.76-1.46); GLOMERULAR FILTRATION RATE > 60.0 (>39); GLUCOSE, FASTING 89 MG/DL (70-100); HDL CHOLESTEROL 57 MG/DL (>40); LDL CHOLESTEROL 86 MG/DL (<100); NON-HDL-C 107 MG/DL; POTASSIUM SERUM 4.2 MEQ/L (3.5-5.1); SODIUM LEVEL 143 MEQ/L (136-145); TOTAL PROTEIN 7.5 GM/DL (6.4-8.2); TRIGLYCERIDES LEVEL 106 MG/DL (<150)
== END ==
LOC: M SFHCCLAY 11:08
PROVIDERS: ATTEND Family Medicine
DX: Z01.84 Encounter for antibody response examination (principal); J44.9 Chronic obstructive pulmonary disease, unspecified; I10 Essential (primary) hypertension; E03.9 Hypothyroidism, unspecified

== ENCOUNTER → 2022-11-14 | Outpatient (REF) | payer MEDICARE, OTHER | LOC: M SFHCCLAY 17:03 | PROVIDERS: ATTEND Physician Assistant | DX: N89.8 Other specified noninflammatory disorders of vagina (principal); Z79.899 Other long term (current) drug therapy ==

== ENCOUNTER → 2023-02-07 | Outpatient (REF) | payer MEDICARE, OTHER ==
[~2023-02-07] MED LIST changes: +COLA100C5 PO; +TRAM50TA2 PO
[2023-02-07 18:14] LABS: BASO # 0.1 10^3/uL (0.0-0.2); BASO % 0.7 % (0.0-1.0); EOS # 0.1 10^3/uL (0.0-0.5); EOS % 0.7 % (0.0-3.0); HEMATOCRIT 49.3 % (36.0-47.0); HEMOGLOBIN 15.4 g/dl (12.0-15.5); LYMPH # 1.7 10^3/uL (1.5-5.0); LYMPH % 17.9 % (24.0-44.0); MEAN CORPUSCULAR HEMOGLOBIN 27.9 pg (27.0-33.0); MEAN CORPUSCULAR HGB CONC 31.2 g/dl (32.0-36.5); MEAN CORPUSCULAR VOLUME 89.5 fl (80.0-96.0); MONO % 10.7 % (2.0-8.0); NEUTROPHILS # 6.6 10^3/uL (1.5-8.5); NEUTROPHILS % 69.7 % (36.0-66.0); PLATELET COUNT, AUTOMATED 238 10^3/uL (150-450); RED BLOOD COUNT 5.51 10^6/uL (4.00-5.40); WHITE BLOOD COUNT 9.5 10^3/uL (4.0-10.0)
[2023-02-07 18:20] LABS: THYROID STIMULATING HORMONE 2.365 uIU/ML (0.55-4.78)
[2023-02-07 18:21] LABS: FREE T4 1.67 NG/DL (0.89-1.76)
[2023-02-07 18:23] LABS: ALBUMIN 4.1 G/DL (3.2-5.2); ALKALINE PHOSPHATASE 90 U/L (46-116); ALT/SGPT 22 U/L (7.0-40); AST/SGOT 22 U/L (<34); BILIRUBIN,TOTAL 0.9 MG/DL (0.3-1.2); BLOOD UREA NITROGEN 18 MG/DL (9-23); CALCIUM LEVEL 9.7 MG/DL (8.3-10.6); CARBON DIOXIDE LEVEL 34 MMOL/L (20-31); CHLORIDE LEVEL 104 MMOL/L (98-107); CHOLESTEROL LEVEL 172 MG/DL (<200); CHOLESTEROL RISK RATIO 3.22 (<5); CREATININE FOR GFR 0.65 MG/DL (0.55-1.30); GLOMERULAR FILTRATION RATE > 60.0 (>39); GLUCOSE, FASTING 88 MG/DL (74-106); HDL CHOLESTEROL 53.3 MG/DL (>40); LDL CHOLESTEROL 88.9 MG/DL (<100); NON-HDL-C 118.7 MG/DL; POTASSIUM SERUM 4.4 MMOL/L (3.5-5.1); SODIUM LEVEL 143 MMOL/L (136-145); TOTAL PROTEIN 7.3 G/DL (5.7-8.2); TRIGLYCERIDES LEVEL 149 MG/DL (<150)
== END ==
LOC: M SFHCCLAY 12:09
PROVIDERS: ATTEND Family Medicine
DX: E03.9 Hypothyroidism, unspecified (principal); I10 Essential (primary) hypertension; J44.9 Chronic obstructive pulmonary disease, unspecified

== ENCOUNTER 2023-02-19 10:14 | Emergency (ER) | payer MEDICARE, OTHER ==
[~2023-02-19] VITALS: Ht 162.6 cm; Wt 69.4 kg
[~2023-02-19 10:14] MED LIST changes: -COLA100C5 PO; -TRAM50TA2 PO
[2023-02-19 12:43] LABS: BASO # 0.1 10^3/uL (0.0-0.2); BASO % 0.5 % (0.0-1.0); EOS # 0.1 10^3/uL (0.0-0.5); EOS % 0.6 % (0.0-3.0); HEMATOCRIT 47.2 % (36.0-47.0); LYMPH # 1.4 10^3/uL (1.5-5.0); LYMPH % 14.8 % (24.0-44.0); MEAN CORPUSCULAR HGB CONC 31.8 g/dl (32.0-36.5); MEAN CORPUSCULAR VOLUME 88.2 fl (80.0-96.0); MONO % 10.5 % (2.0-8.0); NEUTROPHILS % 73.2 % (36.0-66.0); PLATELET COUNT, AUTOMATED 230 10^3/uL (150-450); RED BLOOD COUNT 5.35 10^6/uL (4.00-5.40); WHITE BLOOD COUNT 9.6 10^3/uL (4.0-10.0)
[2023-02-19 14:29] LABS: LIPASE 27 U/L (12-53)
[2023-02-19 14:31] LABS: ALKALINE PHOSPHATASE 102 U/L (46-116); ALT/SGPT 14 U/L (7.0-40); AST/SGOT 13 U/L (<34); BILIRUBIN,DIRECT 0.2 MG/DL (<0.4); BILIRUBIN,TOTAL 0.8 MG/DL (0.3-1.2); BLOOD UREA NITROGEN 21 MG/DL (9-23); CARBON DIOXIDE LEVEL 30 MMOL/L (20-31); CHLORIDE LEVEL 103 MMOL/L (98-107); CREATININE FOR GFR 0.64 MG/DL (0.55-1.30); GLOMERULAR FILTRATION RATE > 60.0 (>39); GLUCOSE, FASTING 96 MG/DL (74-106); POTASSIUM SERUM 3.5 MMOL/L (3.5-5.1); SODIUM LEVEL 142 MMOL/L (136-145); TOTAL PROTEIN 7.3 G/DL (5.7-8.2)
[2023-02-19] MEDS ORDERED: ISOVUE-370 76% 100ML VIAL As Ordered ONE ×2 (14:40→14:53)
[2023-02-19] MEDS ORDERED: TRAM50TA2 PO (16:21)
[2023-02-19] MEDS ORDERED: COLA100C5 PO (16:21)
[2023-02-19 16:39] VITALS: BP 135/60
== END 2023-02-19 16:41 | disposition home or self-care (01) ==
LOC: M ED 10:14
DX: R59.9 Enlarged lymph nodes, unspecified (principal); R10.9 Unspecified abdominal pain; I10 Essential (primary) hypertension; E78.5 Hyperlipidemia, unspecified; J44.9 Chronic obstructive pulmonary disease, unspecified; E03.9 Hypothyroidism, unspecified; F17.200 Nicotine dependence, unspecified, uncomplicated; Z79.2 Long term (current) use of antibiotics; Z79.811 Long term (current) use of aromatase inhibitors; Z79.899 Other long term (current) drug therapy
CPT/HCPCS: 36415; 74021; 74176; 80048; 80076; 81001; 83605; 83690; 85025; 99284; Q9967

== ENCOUNTER → 2023-02-23 | Outpatient (REF) | payer MEDICARE, OTHER ==
[~2023-02-23] MED LIST changes: +COLA100C5 PO; +TRAM50TA2 PO
[2023-02-23 18:39] LABS: CA19-9 TUMOR MARKER,CARBOHYDRA 8.9 U/ML (<35.0)
== END ==
LOC: M SFHCCLAY 11:46
PROVIDERS: ATTEND Family Medicine
DX: R59.0 Localized enlarged lymph nodes (principal)

== ENCOUNTER → 2023-02-26 | Outpatient (CLI) | payer MEDICARE, OTHER | LOC: M RAD 14:26 | PROVIDERS: ATTEND Family Medicine | DX: R91.8 Other nonspecific abnormal finding of lung field (principal); F17.210 Nicotine dependence, cigarettes, uncomplicated ==

== ENCOUNTER 2023-04-20 10:24 | Day surgery (SDC) | payer MEDICARE, OTHER ==
[~2023-04-20] VITALS: Ht 160 cm; Wt 65.7 kg
[~2023-04-20 10:24] MED LIST changes: -ANOR1AER; +ANOR1AER INH; -FAMO1TAB11; +LEVO88TA3 PO; +NS 1,000 ML IV ONE; +VITA400T26 PO
[2023-04-20] MEDS ORDERED: fentaNYL 100 MCG/2 ML INJECTION As Ordered ONE (11:18)
[2023-04-20] MEDS ORDERED: LIDOCAINE 2% 100MG/5ML SDV (FOR ANES.) As Ordered ONE (11:34)
[2023-04-20] MEDS ORDERED: PHENYLephrine 500MCG 5ML (100MCG/ML) SYRINGE As Ordered ONE (11:34)
[2023-04-20] MEDS ORDERED: propofoL 200 MG/20 ML VIAL As Ordered ONE (11:34)
[2023-04-20 12:32] VITALS: BP 105/53
== END 2023-04-20 12:34 | disposition home or self-care (01) ==
LOC: M OPP 10:24
PROVIDERS: ATTEND Internal Medicine Gastroenterology
DX: D12.3 Benign neoplasm of transverse colon (principal); D12.4 Benign neoplasm of descending colon; K64.8 Other hemorrhoids; K57.30 Diverticulosis of large intestine without perforation or abscess without bleeding; Z86.010 Personal history of colon polyps; K29.50 Unspecified chronic gastritis without bleeding; K31.89 Other diseases of stomach and duodenum; Z79.1 Long term (current) use of non-steroidal anti-inflammatories (NSAID); Z79.51 Long term (current) use of inhaled steroids; Z79.02 Long term (current) use of antithrombotics/antiplatelets; Z79.890 Hormone replacement therapy; Z79.899 Other long term (current) drug therapy; Z88.2 Allergy status to sulfonamides; Z91.048 Other nonmedicinal substance allergy status
CPT/HCPCS: 43239; 45385; 88305; J2370; J3010

== ENCOUNTER → 2023-05-04 | Outpatient (CLI) | payer MEDICARE, OTHER ==
[~2023-05-04] MED LIST changes: -NS 1,000 ML IV ONE
== END ==
LOC: M RAD 11:25
PROVIDERS: ATTEND Internal Medicine Gastroenterology
DX: R10.12 Left upper quadrant pain (principal); M89.8X8 Other specified disorders of bone, other site

== ENCOUNTER → 2023-05-24 | Outpatient (CLI) | payer MEDICARE, OTHER ==
[~2023-05-24] MED LIST changes: +GASTROGRAFIN SOLUTION 30ML As Ordered ONE; +ISOVUE-370 76% 100ML VIAL As Ordered ONE
== END ==
LOC: M RAD 11:08
PROVIDERS: ATTEND Internal Medicine Medical Oncology
DX: I88.0 Nonspecific mesenteric lymphadenitis (principal)
CPT/HCPCS: 74177; Q9963; Q9967

== ENCOUNTER → 2023-07-09 | Outpatient (CLI) | payer MEDICARE, OTHER ==
[~2023-07-09] MED LIST changes: -GASTROGRAFIN SOLUTION 30ML As Ordered ONE; -ISOVUE-370 76% 100ML VIAL As Ordered ONE; +POTA10CA60 PO
== END ==
LOC: M PLARAD 11:45
PROVIDERS: ATTEND Internal Medicine Hematology & Oncology
DX: R93.5 Abnormal findings on diagnostic imaging of other abdominal regions, including retroperitoneum (principal); R59.0 Localized enlarged lymph nodes
CPT/HCPCS: 78815; A9552

== ENCOUNTER → 2023-08-31 | Outpatient (CLI) | payer MEDICARE, OTHER | LOC: M WHC 12:09 | PROVIDERS: ATTEND Family Medicine | DX: Z12.31 Encounter for screening mammogram for malignant neoplasm of breast (principal) ==

== ENCOUNTER → 2023-10-10 | Outpatient (CLI) | payer MEDICARE, OTHER ==
[~2023-10-10] MED LIST changes: +LIDOCAINE 1% MDV 20ML VIAL As Ordered ONE; +VENTAER INH
[2023-10-10 09:20] VITALS: TEMP 98.2
[2023-10-10 10:27] VITALS: BP 151/81; O2SAT 94
== END ==
LOC: M IRPRO 08:45
PROVIDERS: ATTEND Otolaryngology
DX: E22.1 Hyperprolactinemia (principal)

== ENCOUNTER → 2024-02-20 | Outpatient (CLI) | payer MEDICARE, OTHER ==
[~2024-02-20] MED LIST changes: -LIDOCAINE 1% MDV 20ML VIAL As Ordered ONE
[2024-02-20 17:51] LABS: BASO # 0.1 10^3/uL (0.0-0.2); BASO % 0.6 % (0.0-1.0); EOS % 0.4 % (0.0-3.0); HEMATOCRIT 47.5 % (36.0-47.0); HEMOGLOBIN 15.2 g/dl (12.0-15.5); LYMPH # 1.3 10^3/uL (1.5-5.0); LYMPH % 15.5 % (24.0-44.0); MEAN CORPUSCULAR HEMOGLOBIN 27.9 pg (27.0-33.0); MEAN CORPUSCULAR VOLUME 87.2 fl (80.0-96.0); MONO # 0.8 10^3/uL (0.0-0.8); MONO % 9.5 % (2.0-8.0); NEUTROPHILS # 6.3 10^3/uL (1.5-8.5); NEUTROPHILS % 73.8 % (36.0-66.0); PLATELET COUNT, AUTOMATED 247 10^3/uL (150-450); RED BLOOD COUNT 5.45 10^6/uL (4.00-5.40); WHITE BLOOD COUNT 8.6 10^3/uL (4.0-10.0)
[2024-02-20 19:01] LABS: LDH LACTATE DEHYDROGENASE 156 U/L (120-246)
[2024-02-20 19:02] LABS: ALBUMIN 3.8 G/DL (3.2-5.2); ALKALINE PHOSPHATASE 83 U/L (46-116); ALT/SGPT 15 U/L (7.0-40); AST/SGOT 19 U/L (<34); BILIRUBIN,TOTAL 0.7 MG/DL (0.3-1.2); BLOOD UREA NITROGEN 27 MG/DL (9-23); CALCIUM LEVEL 9.8 MG/DL (8.3-10.6); CARBON DIOXIDE LEVEL 32 MMOL/L (20-31); CHLORIDE LEVEL 104 MMOL/L (98-107); CHOLESTEROL LEVEL 149 MG/DL (<200); CHOLESTEROL RISK RATIO 2.51 (<5); FREE T4 1.52 NG/DL (0.89-1.76); GLOMERULAR FILTRATION RATE > 60.0 (>39); GLUCOSE, FASTING 95 MG/DL (74-106); HDL CHOLESTEROL 59.2 MG/DL (>40); LDL CHOLESTEROL 70.2 MG/DL (<100); NON-HDL-C 89.8 MG/DL; POTASSIUM SERUM 4.4 MMOL/L (3.5-5.1); SODIUM LEVEL 140 MMOL/L (136-145); TOTAL PROTEIN 6.9 G/DL (5.7-8.2); TRIGLYCERIDES LEVEL 98 MG/DL (<150)
[2024-02-20 19:03] LABS: THYROID STIMULATING HORMONE 3.111 uIU/ML (0.55-4.78)
== END ==
LOC: M SFHCCLAY 11:23 → M RAD 11:23
PROVIDERS: ATTEND Family Medicine
DX: E03.9 Hypothyroidism, unspecified (principal); I10 Essential (primary) hypertension; K21.00 Gastro-esophageal reflux disease with esophagitis, without bleeding; C82.93 Follicular lymphoma, unspecified, intra-abdominal lymph nodes

== ENCOUNTER → 2024-07-10 | Outpatient (CLI) | payer MEDICARE, OTHER ==
[~2024-07-10] MED LIST changes: -POTA10CA60 PO; +POTA10CA70 PO
== END ==
LOC: M RAD 10:15
PROVIDERS: ATTEND Family Medicine
DX: Z12.2 Encounter for screening for malignant neoplasm of respiratory organs (principal); F17.210 Nicotine dependence, cigarettes, uncomplicated; J43.2 Centrilobular emphysema; J47.9 Bronchiectasis, uncomplicated; I77.810 Thoracic aortic ectasia; N28.1 Cyst of kidney, acquired

== ENCOUNTER → 2024-09-05 | Outpatient (CLI) | payer MEDICARE, OTHER | LOC: M WHC 12:06 | PROVIDERS: ATTEND Family Medicine | DX: Z12.31 Encounter for screening mammogram for malignant neoplasm of breast (principal); Z78.0 Asymptomatic menopausal state; M85.88 Other specified disorders of bone density and structure, other site; M81.0 Age-related osteoporosis without current pathological fracture; R92.323 Mammographic fibroglandular density, bilateral breasts ==

== ENCOUNTER → 2025-02-20 | Outpatient (REF) | payer MEDICARE, OTHER ==
[2025-02-20 18:04] LABS: ALKALINE PHOSPHATASE 85 U/L (35-104); ALT/SGPT 18 U/L (7.0-40); AST/SGOT 18 U/L (<34); BILIRUBIN,TOTAL 0.8 MG/DL (0.3-1.2); BLOOD UREA NITROGEN 21 MG/DL (9-23); CALCIUM LEVEL 10.3 MG/DL (8.3-10.6); CARBON DIOXIDE LEVEL 31 MMOL/L (20-31); CHLORIDE LEVEL 105 MMOL/L (98-107); CHOLESTEROL LEVEL 178 MG/DL (<200); CHOLESTEROL RISK RATIO 2.91 (<5); CREATININE FOR GFR 0.67 MG/DL (0.55-1.30); GLOMERULAR FILTRATION RATE > 60.0 (>39); GLUCOSE, FASTING 88 MG/DL (74-106); LDL CHOLESTEROL 99.2 MG/DL (<100); POTASSIUM SERUM 4.1 MMOL/L (3.5-5.1); SODIUM LEVEL 143 MMOL/L (136-145); TOTAL PROTEIN 7.5 G/DL (5.7-8.2); TRIGLYCERIDES LEVEL 89 MG/DL (<150)
[2025-02-20 18:05] LABS: HEMOGLOBIN A1c 5.3 % (4.0-6.0)
== END ==
LOC: M SFHCCLAY 11:26
PROVIDERS: ATTEND Physician Assistant
DX: Z00.00 Encounter for general adult medical examination without abnormal findings (principal); E03.9 Hypothyroidism, unspecified; I10 Essential (primary) hypertension; K21.9 Gastro-esophageal reflux disease without esophagitis; J44.9 Chronic obstructive pulmonary disease, unspecified; K59.09 Other constipation; C82.90 Follicular lymphoma, unspecified, unspecified site; N28.1 Cyst of kidney, acquired; K76.89 Other specified diseases of liver; R91.8 Other nonspecific abnormal finding of lung field; I77.810 Thoracic aortic ectasia

== ENCOUNTER → 2025-03-11 | Outpatient (CLI) | payer MEDICARE, OTHER ==
[~2025-03-11] MED LIST changes: +ALEN70SO2 PO
[2025-03-11 11:24] LABS: BASO # 0.1 10^3/uL (0.0-0.2); BASO % 0.7 % (0.0-1.0); EOS # 0.1 10^3/uL (0.0-0.5); EOS % 1.5 % (0.0-3.0); HEMATOCRIT 48.2 % (36.0-47.0); HEMOGLOBIN 15.2 g/dl (12.0-15.5); LYMPH # 1.7 10^3/uL (1.5-5.0); MEAN CORPUSCULAR HEMOGLOBIN 28.1 pg (27.0-33.0); MEAN CORPUSCULAR HGB CONC 31.5 g/dl (32.0-36.5); MEAN CORPUSCULAR VOLUME 89.1 fl (80.0-96.0); MONO # 0.9 10^3/uL (0.0-0.8); NEUTROPHILS # 6.5 10^3/uL (1.5-8.5); NEUTROPHILS % 69.4 % (36.0-66.0); PLATELET COUNT, AUTOMATED 270 10^3/uL (150-450); RED BLOOD COUNT 5.41 10^6/uL (4.00-5.40); WHITE BLOOD COUNT 9.4 10^3/uL (4.0-10.0)
[2025-03-11 11:57] LABS: HEMOGLOBIN A1c 5.3 % (4.0-6.0)
[2025-03-11 11:59] LABS: ALBUMIN 3.9 G/DL (3.2-5.2); BILIRUBIN,TOTAL 0.8 MG/DL (0.3-1.2); CALCIUM LEVEL 10.3 MG/DL (8.3-10.6); CHOLESTEROL RISK RATIO 2.43 (<5); CREATININE FOR GFR 0.71 MG/DL (0.55-1.30); GLOMERULAR FILTRATION RATE 88.1 (>39); HDL CHOLESTEROL 64.6 MG/DL (>40); LDL CHOLESTEROL 71.8 MG/DL (<100); MAGNESIUM LEVEL 1.7 MG/DL (1.8-2.4); NON-HDL-C 92.4 MG/DL; POTASSIUM SERUM 3.7 MMOL/L (3.5-5.1); TOTAL PROTEIN 7.3 G/DL (5.7-8.2)
[2025-03-11 12:01] LABS: THYROID STIMULATING HORMONE 4.362 uIU/ML (0.55-4.78)
[2025-03-12 11:13] LABS: LDL DIRECT 79 mg/dL (<100)
[2025-03-12 11:27] LABS: NT PRO BNP SO 57 pg/mL (<450)
== END ==
LOC: M LAB 10:30
PROVIDERS: ATTEND Internal Medicine Cardiovascular Disease
DX: I11.9 Hypertensive heart disease without heart failure (principal); E78.2 Mixed hyperlipidemia; I49.3 Ventricular premature depolarization; E78.6 Lipoprotein deficiency; I48.0 Paroxysmal atrial fibrillation; Z13.29 Encounter for screening for other suspected endocrine disorder; Z13.1 Encounter for screening for diabetes mellitus

== ENCOUNTER → 2025-04-06 | Outpatient (REF) | payer MEDICARE, OTHER | LOC: M SFHCCLAY 17:22 | PROVIDERS: ATTEND Physician Assistant | DX: E83.42 Hypomagnesemia (principal) ==

== ENCOUNTER → 2025-07-15 | Outpatient (CLI) | payer MEDICARE, OTHER | LOC: M PLAIMG 09:38 | PROVIDERS: ATTEND Internal Medicine Pulmonary Disease | DX: R91.8 Other nonspecific abnormal finding of lung field (principal) ==

== ENCOUNTER → 2025-08-17 | Outpatient (REF) | payer MEDICARE, OTHER ==
[2025-08-17 17:54] LABS: CHOLESTEROL LEVEL 192.0 MG/DL (<200); CHOLESTEROL RISK RATIO 2.92 (<5); LDL CHOLESTEROL 102.6 MG/DL (<100); NON-HDL-C 126.4 MG/DL; TRIGLYCERIDES LEVEL 119.0 MG/DL (<150)
[2025-08-17 17:55] LABS: FREE T4 1.61 NG/DL (0.89-1.76)
[2025-08-17 18:51] LABS: ESTIMATED AVERAGE GLUCOSE 111.0 MG/DL (60-110)
== END ==
LOC: M SFHCCLAY 13:24
PROVIDERS: ATTEND Physician Assistant
DX: M81.0 Age-related osteoporosis without current pathological fracture (principal); E83.42 Hypomagnesemia; E03.9 Hypothyroidism, unspecified; I10 Essential (primary) hypertension; E78.2 Mixed hyperlipidemia; K21.9 Gastro-esophageal reflux disease without esophagitis; J44.9 Chronic obstructive pulmonary disease, unspecified; R91.8 Other nonspecific abnormal finding of lung field; Z87.891 Personal history of nicotine dependence; C82.90 Follicular lymphoma, unspecified, unspecified site; K59.09 Other constipation; N28.1 Cyst of kidney, acquired; K76.89 Other specified diseases of liver; I49.3 Ventricular premature depolarization; I77.810 Thoracic aortic ectasia; Z79.899 Other long term (current) drug therapy

== ENCOUNTER → 2025-09-09 | Outpatient (CLI) | payer MEDICARE, OTHER | LOC: M WHC 14:20 | PROVIDERS: ATTEND Physician Assistant | DX: Z12.31 Encounter for screening mammogram for malignant neoplasm of breast (principal); R92.323 Mammographic fibroglandular density, bilateral breasts ==

== ENCOUNTER → 2025-11-16 | Outpatient (REF) | payer MEDICARE, OTHER ==
[2025-11-16 19:17] LABS: FREE T4 2.06 NG/DL (0.89-1.76)
== END ==
LOC: M SFHCCLAY 10:13
PROVIDERS: ATTEND Physician Assistant
DX: E03.9 Hypothyroidism, unspecified (principal); I10 Essential (primary) hypertension; E78.2 Mixed hyperlipidemia; K21.9 Gastro-esophageal reflux disease without esophagitis; J44.9 Chronic obstructive pulmonary disease, unspecified; R91.8 Other nonspecific abnormal finding of lung field; C82.90 Follicular lymphoma, unspecified, unspecified site; M81.0 Age-related osteoporosis without current pathological fracture; K59.09 Other constipation; N28.1 Cyst of kidney, acquired; K76.89 Other specified diseases of liver; E83.42 Hypomagnesemia; I49.3 Ventricular premature depolarization; I77.810 Thoracic aortic ectasia; Z12.31 Encounter for screening mammogram for malignant neoplasm of breast

== ENCOUNTER → 2025-11-16 | Outpatient (REF) | payer MEDICARE, OTHER ==
[2025-11-16 18:56] LABS: CALCIUM LEVEL 9.6 MG/DL (8.3-10.6); CARBON DIOXIDE LEVEL 33.0 MMOL/L (20-31); CHLORIDE LEVEL 105.0 MMOL/L (98-107); CREATININE FOR GFR 0.72 MG/DL (0.55-1.30); GLOMERULAR FILTRATION RATE 86.1 (>39); POTASSIUM SERUM 4.0 MMOL/L (3.5-5.1); SODIUM LEVEL 146.0 MMOL/L (136-145)
[2025-11-16 19:18] LABS: BASO # 0.1 10^3/uL (0.0-0.2); BASO % 0.8 % (0.0-1.0); EOS # 0.1 10^3/uL (0.0-0.5); EOS % 1.2 % (0.0-3.0); LYMPH # 1.4 10^3/uL (1.5-5.0); LYMPH % 15.4 % (24.0-44.0); MONO # 1.0 10^3/uL (0.0-0.8); MONO % 10.5 % (2.0-8.0); NEUTROPHILS # 6.6 10^3/uL (1.5-8.5); NEUTROPHILS % 71.8 % (36.0-66.0); PLATELET COUNT, AUTOMATED 207 10^3/uL (150-450)
== END ==
LOC: M LABDRAWC 17:33
PROVIDERS: ATTEND Internal Medicine Cardiovascular Disease
DX: I11.9 Hypertensive heart disease without heart failure (principal); I49.3 Ventricular premature depolarization